=== PATIENT | male | born 1960 | race Caucasian/White ===

== ENCOUNTER 2020-11-17 11:47 | Emergency (ER) | payer MEDICARE, SELFPAY ==
[~2020-11-17 11:47] MED LIST: JANTOVEN5 MG PO; KEFLEX500 MG PO; NORCO 7.5-3251 EACH PO; PERCOCET 5-3251 EACH PO; XANAX2 MG PO
== END 2020-11-17 15:53 | disposition home or self-care (01) ==
LOC: FER 11:47
DX: M17.11 Unilateral primary osteoarthritis, right knee (principal); F17.210 Nicotine dependence, cigarettes, uncomplicated; Z98.890 Other specified postprocedural states
CPT/HCPCS: 73564; 96372; J1100; J1885

== ENCOUNTER 2020-11-22 09:24 | Emergency (ER) | payer MEDICARE, SELFPAY ==
[2020-11-22] MEDS ORDERED: NEURONTIN100 MG PO (13:15)
== END 2020-11-22 13:27 | disposition home or self-care (01) ==
LOC: FER 09:24
DX: G62.9 Polyneuropathy, unspecified (principal); F17.200 Nicotine dependence, unspecified, uncomplicated; Z86.718 Personal history of other venous thrombosis and embolism
CPT/HCPCS: 93971

== ENCOUNTER → 2021-09-28 | Day surgery (SDC) | payer MEDICARE ==
[~2021-09-28] VITALS: Ht 175.3 cm; Wt 95.4 kg
[~2021-09-28] MED LIST changes: +ACETAMINOPHEN325 MG PO; +ASCORBIC ACID500 MG PO; +ASPIRIN EC81 MG PO; +ASPIRIN325 MG PO; +DAY TIME COLD-1 EAC1 PO; +NEURONTIN100 MG PO; +PRILOSEC10 M1 PO; +VENTOLIN HFA IN18 GM INH; +VITAMIN D310 MC1 PO; +ZINC50 M1 PO
[2021-09-28 12:51] LABS: HCT 47.3 % (42.0-52.0); HGB 16.2 g/dl (13.2-18.0); MCH 33.2 pg (25.0-31.0); MCHC 34.2 g/dL (32.0-36.0); MCV 96.9 fL (78.0-100.0); MPV 9.8 fL (6.0-9.5); RBC 4.88 M/uL (4.70-6.00); RDW 13.8 % (11.5-14.0); WBC 9.9 K/uL (4.0-10.5)
[2021-09-28 13:24] LABS: ALBUMIN 3.9 g/dL (3.4-5.0); BILIRUBIN - TOTAL 0.5 mg/dL (0.2-1.0); BUN/CREAT RATIO (CALC) 13.9 RATIO; CREATININE 1.37 mg/dL (0.67-1.17); POTASSIUM 4.1 mmol/L (3.5-5.1); TOTAL PROTEIN 8.9 g/dL (6.4-8.2)
== END | disposition home or self-care (01) ==
LOC: FAS 07:00
PROVIDERS: Orthopaedic Surgery
DX: S83.232A Complex tear of medial meniscus, current injury, left knee, initial encounter (principal); S83.281A Other tear of lateral meniscus, current injury, right knee, initial encounter; M25.461 Effusion, right knee; F41.9 Anxiety disorder, unspecified; K21.9 Gastro-esophageal reflux disease without esophagitis; Z96.642 Presence of left artificial hip joint; F17.210 Nicotine dependence, cigarettes, uncomplicated; M25.861 Other specified joint disorders, right knee; M67.51 Plica syndrome, right knee; X58.XXXA Exposure to other specified factors, initial encounter; M17.11 Unilateral primary osteoarthritis, right knee; Z79.82 Long term (current) use of aspirin; R91.8 Other nonspecific abnormal finding of lung field; R94.31 Abnormal electrocardiogram [ECG] [EKG]
CPT/HCPCS: 36415; 71045; 80053; 93005; J1100; J1170; J2250; J2405; J2704; J3010; J7120

== ENCOUNTER 2021-10-11 09:54 | Emergency (ER) | payer MEDICARE ==
[2021-10-11 11:34] LABS: ALBUMIN 3.7 g/dL (3.4-5.0); BILIRUBIN - TOTAL 0.5 mg/dL (0.2-1.0); BUN/CREAT RATIO (CALC) 9.8 RATIO; CREATININE 1.43 mg/dL (0.67-1.17); GLOBULIN (CALCULATION) 4.8 g/dL; POTASSIUM 4.8 mmol/L (3.5-5.1); TOTAL PROTEIN 8.5 g/dL (6.4-8.2)
[2021-10-11 11:35] LABS: BASOPHIL 0.3 % (0-2); EOSINOPHIL 0 % (0-5); HCT 50.4 % (42.0-52.0); HGB 17.2 g/dl (13.2-18.0); LYMPHOCYTE 23.3 % (15-48); MCH 33.5 pg (25.0-31.0); MCHC 34.1 g/dL (32.0-36.0); MCV 98.1 fL (78.0-100.0); MONOCYTE 12.3 % (0-12); MPV 10.5 fL (6.0-9.5); NEUTROPHIL 63.8 % (41-80); NRBC 0; PLT 121 K/uL (150-400); RBC 5.14 M/uL (4.70-6.00); RDW 14.3 % (11.5-14.0); WBC 6.6 K/uL (4.0-10.5)
[2021-10-11 12:10] LABS: CORONAVIRUS 2019 SARS-COV-2 POSITIVE (NEGATIVE); INFLUENZA A NAA NEGATIVE (NEGATIVE)
== END 2021-10-11 16:13 | disposition home or self-care (01) ==
LOC: FER 09:54
PROVIDERS: Emergency Medicine
DX: U07.1 COVID-19 (principal); F17.200 Nicotine dependence, unspecified, uncomplicated; Z23 Encounter for immunization
CPT/HCPCS: 36415; 36600; 71250; 80053; 82803; 85025; 87040; 93005; M0243; Q0244; U0002